=== PATIENT | female | born 1990 | race Asian ===

== ENCOUNTER 2017-01-07 00:01 | Inpatient (IN) | payer SELFPAY ==
[~2017-01-07] VITALS: Ht 164 cm; Wt 72.1 kg
[2017-01-07] MEDS ORDERED: PNV-DHA1 SGL PO (00:48)
[2017-01-07] MEDS ORDERED: CARBOPROST 250 MCG/ML AMP IM PRN (00:50)
[2017-01-07] MEDS ORDERED: OXYTOCIN 10 UNITS/ML VIAL IM SCH (00:50)
[2017-01-07] MEDS ORDERED: METHYLERGONOVINE 0.2 MG/ML AMP IM PRN ×2 (00:50→22:05)
[2017-01-07 01:00] VITALS: BP 96/55
[2017-01-07] MEDS ORDERED: OXYTOCIN 20 UNITS/LR PREMIX 1,000 ML IV ONE ×2 (01:27→21:03)
[2017-01-07] MEDS: LACTATED RINGERS 1,000 ML IV SCH ×6 (01:30→20:09)
[2017-01-07] MEDS: OXYTOCIN 20 UNITS/LR PREMIX 1,000 ML IV SCH ×2 (01:41→21:38)
[2017-01-07] MEDS ORDERED: BUPIVACAINE 0.125%/NS PREMIX 250 ML ONE (02:33)
[2017-01-07] MEDS ORDERED: AMPICILLIN 1,000 MG VIAL ONE (05:53)
[2017-01-07] MEDS: AMPICILLIN 2,000 MG in NACL 0.9% 100 ML IV SCH ×3 (06:10→17:57)
--- NOTE | 2017-01-07 09:09 | NUR ---
PATIENT HAS BEEN SCREENED AND CATEGORIZED LOW NUTRITION RISK. PATIENT WILL BE SEEN WITHIN 7 DAYS OF ADMISSION. 01/13/[address]
[2017-01-07] MEDS ORDERED: AMPICILLIN 2,000 MG VIAL ONE ×2 (11:50→17:55)
[2017-01-07] MEDS ORDERED: PROMETHAZINE 25 MG/ML VIAL IVP PRN (15:25)
[2017-01-07] MEDS ORDERED: PROMETHAZINE 25 MG/ML VIAL ONE (15:26)
[2017-01-07] MEDS ORDERED: OXYTOCIN 10 UNITS/ML VIAL ONE ×3 (17:36→20:18)
[2017-01-07] MEDS ORDERED: ceFAZolin 1,000 MG VIAL ONE (19:46)
[2017-01-07] MEDS ORDERED: CITRIC ACID/SODIUM CITRATE 30 ML UDC PO SCH (20:00)
[2017-01-07] MEDS ORDERED: MIDAZOLAM 2 MG/2 ML VIAL ONE (20:08)
[2017-01-07] MEDS ORDERED: MORPHINE PRES FREE 10 MG/10 ML AMP IV ONE (20:09)
[2017-01-07] MEDS ORDERED: TRIAMCINOLONE 40 MG/ML 5ML VIAL ONE ×2 (20:17→20:19)
[2017-01-07] MEDS ORDERED: CITRIC ACID/SODIUM CITRATE 30 ML UDC ONE (20:28)
[2017-01-07] MEDS ORDERED: OXYTOCIN 20 UNITS/LR PREMIX 1,000 ML IV SCH ×2 (21:01→22:04)
[2017-01-07] MEDS ORDERED: diphenhydrAMINE 50 MG/ML VIAL ONE (21:03)
[2017-01-07] MEDS ORDERED: HYDROmorphone 1 MG/ML AMP IVP PRN (21:05)
[2017-01-07] MEDS ORDERED: ONDANSETRON 4 MG/2 ML VIAL IVP PRN ×2 (21:05)
[2017-01-07] MEDS ORDERED: NALBUPHINE 10 MG/ML AMP IVP PRN (21:05)
[2017-01-07] MEDS ORDERED: diphenhydrAMINE 50 MG/ML VIAL IVP PRN ×2 (21:05)
[2017-01-07] MEDS ORDERED: NALOXONE 0.4 MG/ML VIAL IVP PRN ×3 (21:05)
[2017-01-07] MEDS ORDERED: MEPERIDINE 25 MG/ML SYR IVP PRN (21:05)
[2017-01-07] MEDS ORDERED: ONDANSETRON 4 MG/2 ML VIAL ONE (21:30)
[2017-01-07] MEDS ORDERED: KETOROLAC 30 MG/ML VIAL ONE (21:53)
[2017-01-07] MEDS ORDERED: KETOROLAC 30 MG/ML VIAL IVP SCH (21:55)
[2017-01-07] MEDS ORDERED: BUPRENORPHINE 0.3 MG/ML VIAL IV PRN (22:05)
[2017-01-07] MEDS ORDERED: TEMAZEPAM 15 MG CAP PO PRN (22:05)
[2017-01-07] MEDS ORDERED: TRIMETHOBENZAMIDE 200 MG/2 ML SYR IM PRN (22:05)
[2017-01-07] MEDS ORDERED: oxyCODONE/APAP 5/325 MG 1 TAB TAB PO PRN (22:05)
[2017-01-07] MEDS ORDERED: MEASLES, MUMPS, AND RUBELLA 1 VIAL SQVAC PRN (22:05)
[2017-01-07] MEDS ORDERED: HYDROcodone/APAP 5/325 MG 1 TAB TAB PO PRN (22:05)
[2017-01-07] MEDS ORDERED: SIMETHICONE 80 MG TAB.CHEW PO PRN (22:05)
[2017-01-08] MEDS ORDERED: KETOROLAC 30 MG/ML VIAL IM/IVP SCH
[2017-01-08] MEDS ORDERED: SENNA 8.6 MG TAB PO SCH (21:00)
[2017-01-09] MEDS ORDERED: INFLUENZA VIRUS VACCINE QUAD 0.5 ML SYR IMVAC SCH (14:25)
== END 2017-01-10 14:15 | disposition home or self-care (01) | DRG 766 ==
LOC: MLD 00:01 → MFCC 22:16
PROVIDERS: ADMIT Obstetrics & Gynecology; ATTEND Obstetrics & Gynecology
PROC: 3E033VJ Introduction of Other Hormone into Peripheral Vein, Percutaneous Approach (ICD-10-PCS; 2017-01-07)
PROC: 10D00Z1 Extraction of Products of Conception, Low, Open Approach (ICD-10-PCS; principal; 2017-01-07 20:15)
DX: O32.4XX0 Maternal care for high head at term, not applicable or unspecified (principal); O62.1 Secondary uterine inertia; O42.92 Full-term premature rupture of membranes, unspecified as to length of time between rupture and onset of labor; Z37.0 Single live birth; Z3A.40 40 weeks gestation of pregnancy; Z28.21 Immunization not carried out because of patient refusal